=== PATIENT | female | born 1985 | race African-American/Black ===

== ENCOUNTER 2016-08-07 08:06 | Emergency (ER) | payer SELFPAY ==
[2016-08-07 08:24] VITALS: BMI 36.6
--- NOTE | 2016-08-07 09:29 | EDPRACDOC ---
- General Information Chief Complaint: Toothache Stated Complaint: ABSCESS TOOTH Time Seen by Provider: 08/07/16 08:54 Information Source: Patient Mode Of Arrival: Car Home Medications: Home Medications Insulin Aspart [Novolog] 10 unit SQ .TID WITH MEALS PRN 09/08/12 Clindamycin [Cleocin] 300 mg PO TID #60 capsule 08/07/16 Hydrocodone Bit/Acetaminophen [Hydrocodon-Acetaminophen 5-325] 1 tab PO Q6H PRN #15 tab 08/07/16 Allergies/Adverse Reactions: Allergies Allergy/AdvReac Type Severity Reaction Status Date / Time No Known Allergies Allergy Verified 08/07/16 09:08 - History of Present Illness Onset: 2 days HPI: PT STATES RIGHT LOWER TOOTHACHE STARTED YESTERDAY SMALL KNOT ON RIGHT LOWER JAW WHEN SHE WOKE UP THIS AM SIGNIFICANT SWELLING RIGHT LOWER JAW MILD PAIN. NO FEVERS. Pain Severity: Reports: Mild, Moderate Relevant History of: Reports: None Modifying Factors: improves with: None Associated Signs and Symptoms: Reports: None ED Past Medical History - History Reviewed Yes Nurses notes reviewed and agree except as marked Travel Outside of [place] in the Last 3 Months?: No No Past Medical History: Yes Patient has no past medical history - Patient Medical History Cardiac History: Reports: Hypertension Musculoskeletal History: Denies: Arthritis Psychological History: Denies: Depression Systemic History: Reports: Diabetes, Hyperthyroidism, Hypothyroidism. Denies: Cancer Surgical History: Denies: Hysterectomy - Family Medical History Reports: Hypertension (SISTER, FATHER), Diabetes (FATHER, MOTHER. SISTER). Denies: Cancer, Stroke, Cardiac Disorders - Social Medical History Smoking Status: Never smoker Social History: Denies: Amphetamine Use, Barbiturate Use, Benzodiazipine Use, Heroin Use, Marijuana Use, Methadone Use ETOH: None Substance Abuse: None Lives With: Other Lives In: Home EDM Review of Systems - Review of Systems ROS Negative Except as Marked: Yes All systems reviewed and were negative except as marked Constitutional: No Symptoms Reported. negative: Fever, Chills, Weakness, Fatigue, Loss of Appetite Eyes: No Symptoms Reported. negative: Redness, Blurred Vision, Double Vision, Discharge, Pain, Light Sensitive, Photophobia Ears: No Symptoms Reported. negative: Pain, Hearing Loss, Drainage, Ear Pulling Throat: No Symptoms Reported. negative: Pain, Swelling Nose: No Symptoms Reported. negative: Congestion, Bleeding, Discharge, Injection, Swelling, Deformity, Ecchymosis, Tender, Abrasion, Laceration Mouth: Tooth Pain (RT LOWER JAW). negative: Pain, Drooling Respiratory: No Symptoms Reported. negative: Cough, Brassy Cough, Barky Cough, Shortness of Breath, Wheezing, Hemoptysis Cardiovascular: No Symptoms Reported. negative: Chest Pain, Palpitations, Syncope, Edema, Orthopnea, PND, Skin Mottling, Cyanosis Gastrointestinal: No Symptoms Reported. negative: Pain, Constipation, Nausea, Vomiting, Diarrhea, Melena, Formula Intolerance Genitourinary: No Symptoms Reported. negative: Dysuria, Hematuria, Frequency, Discharge, Bleeding, Testicular Pain, Neurological: No Symptoms Reported. negative: Headache, Dizziness, Seizure, Numbness, Weakness, Speech Difficulty, Gait Difficulty Musculoskeletal: No Symptoms Reported. negative: Neck, Chestwall, Ribs, Back, Shoulder, Arm, Elbow, Forearm, Wrist, Hand, Pelvis, Hip, Femur, Knee, Leg, Ankle , Foot Integumentary: No Symptoms Reported. negative: Itching, Rash, Bruising, Wound Allergic/Immunologic: No Symptoms Reported. negative: Hives, Itching Hematologic: No Symptoms Reported. negative: Lymphadenopathy, Easy Bruising, Easy Bleeding Endocrine: No Symptoms Reported. negative: Weight Gain, Weight Loss Psychiatric: No Symptoms Reported. negative: Anxiety, Depression, Hallucinations, Insomnia, Suicidal - Physical Exam Constitutional: Alert (Awake), No apparent distress Oriented to: Time, Person, Place Last recorded Vital Signs: Last Vital Signs Temp 98.5 F 08/07/16 08:19 Pulse 108 08/07/16 08:24 Resp 18 08/07/16 08:24 BP 136/97 08/07/16 08:24 Pulse Ox 100 08/07/16 08:24 Oxygen Pulse Oxygen Saturation 100 O2 Device Room Air Oxygen Flow Rate Fraction of Inspired Oxygen ( FIO2) - HEENT Head: Normal ( normocephalic) Eye Exam: Normal (PERRL, EOMI, Sclera white) Oropharynx: Normal (Pharynx:Moist without exudate,Gums-no swelling) Tympanic Membrane: Normal ENT EAC: Normal TMJ: Normal Nose: No Symptoms Reported (septum midline) Neck: Normal (FROM, trachea at midline) - Respiratory/Cardiovascular Respiratory: Normal - CTA (BBS clear to auscultation without adventitious sounds ) Cardiovascular: Normal (RRR without murmur, gallop or rub) - GI Auscultation: Normal (NABS) Palpation: Normal (Soft,No rebound or guarding, non distended) Tenderness: Non tender Morton's Sign: Negative - Musculoskeletal Back: Normal (Non-Tender) Extremities: Normal (Normal tone, Pulses 2+ No cyanosis or edema, FROM) - Integumentary Skin: Normal, Warm, Dry Lymphatics: Normal (no adenopathy) - Neurologic Memory Impaired: Normal Motor Function: Normal (Normal tone, Pulses 2+ No cyanosis or edema, FROM) Cranial Nerve: Normal (CN II-X11 intact sensation, strength 5/5) Cerebellar: Normal Mood Description: Normal Perception: Normal ED Tooth Problem Exam - HEENT Face: Swelling, Tender Teeth: Right: Molar-2 Lower (CARIOUS ) Gingiva: Tender, Swelling, Red Palate: Normal Mouth Range of Motion: Normal Sinuses: Normal Oropharynx: Normal Neck: Normal - Differential Diagnosis Periapical Abscess, Periodontal Abscess Decision Time to Discharge: 09:29 - Departure Disposition: Home Condition: Stable Final Diagnosis: Dental caries, Dental abscess (peridontal) Instructions: Dental Abscess (ED), Dental Caries (ED) Education/Counseling Given To: Patient Education/Counseling Given Regarding: Diagnosis, Treatment, Prognosis, Follow Up Referrals: Franky Stewart MD [Primary Care Provider] - One Week Prescriptions: Clindamycin [Cleocin] 300 mg PO TID #60 capsule Hydrocodone Bit/Acetaminophen [Hydrocodon-Acetaminophen 5-325] 1 tab PO Q6H PRN #15 tab PRN Reason: Pain Additional Instructions: RETURN FOR WORSE OR DIFFERENT SYMPTOMS. FOLLOW UP WITH DENTIST. DR. OSWALDO MEDRANO IN [facility] , OR DR[facility] INOCENCIO [facility]RANO [facility] .
[2016-08-07 09:55] VITALS: BP 133/80; PULSE 106; TEMP 98.9
== END 2016-08-07 09:55 | disposition home or self-care (01) ==
LOC: ED 08:06
DX: K04.7 Periapical abscess without sinus (principal); K02.9 Dental caries, unspecified
CPT/HCPCS: 99283